=== PATIENT | male | born 1970 | race Caucasian/White ===

== ENCOUNTER 2018-09-01 14:49 | Emergency (ER) | payer OTHER ==
[2018-09-01] MEDS ORDERED: IOPAMIDOL (ISOVUE 370) 100 ML BTL IV ONE (16:01)
[2018-09-01 16:02] LABS: PLATELET COUNT 260 10^3/uL (150-400)
--- NOTE | 2018-09-01 16:13 | EDPHY ---
H & P Stated Complaint: dizzy spells over the last 4 days and 2 blackouts. Time Seen by Provider: 09/01/18 15:08 HPI/ROS: CHIEF COMPLAINT: Dizzy spells, fainting HISTORY OF PRESENT ILLNESS: This is a 48-year-old male with history of factor 5 and alcohol abuse who presents with 4 days of intermittent spells of dizziness. He describes the dizziness as a spinning sensation. He 1st noticed it when he woke up in the early Thursday morning (today is Thursday). When he stood up to get out of bed he states that he passed out and fell backwards onto the bed. He believes that he lost consciousness and does not think that he fell backwards because he was off balance. Since Thursday morning he has had intermittent episodes of spinning, lasting 10-15 seconds. They are worse with movement. On Thursday, 2 days ago, he spent the whole day in bed. Yesterday he felt better but today he is again experienced a couple of episodes of the dizziness. He states that he has had 2 previous syncopal episode. 1 was about 10 years ago when he was at a [employer]. He did not have a medical evaluation at that time but says that he woke up on the floor of the restaurant surrounded by paramedics. He had a 2nd episode about 4 years ago when he got up out of bed, when into the kitchen to get a drink, and again found himself on the floor. He broke 2 ribs at that time. He has history of factor 5 Leiden. He does not take anticoagulation. He reports left-sided neck pain that he has been experiencing on and off recently. He is not experiencing headache. He does note some numbness or an abnormal sensation around his mouth. This has been present on and off for the last few days. He has a family history of alcohol abuse with 2 brothers who of sequelae of alcohol abuse. He drinks 4 beers daily, which is a decrease for him. He is concerned about his alcohol use and believes that he drinks too much. He smokes 1 pack of cigarettes daily. He denies chest pain or shortness of breath. He has not had recent fever, cough , sore throat, URI symptoms. REVIEW OF SYSTEMS: A ten system review of systems was performed and is negative with the exception of the items mentioned in the HPI. Past medical history: 1. Factor 5 Leiden 2. Diverticulitis 3. History of alcohol abuse 4. History of tobacco abuse Family history: Positive for alcohol abuse and factor 5 Social history: He lives with his girlfriend. Alcohol and tobacco use as above. No current illicit drug use. 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 General Appearance: Alert. Vital signs reviewed. Blood pressure 123/6. Eyes: Pupils equal and round, no conjunctival injection, no discharge. Anicteric. ENT, Mouth: Mucous membranes are moist, no oropharyngeal erythema or edema. Neck: No lymphadenopathy, supple. No carotid bruits. Respiratory: Lungs are clear to auscultation; no wheezes, rales, or rhonchi. Cardiovascular: Regular rate and rhythm; no murmur, rub, or gallop. Gastrointestinal: Abdomen is soft and nontender, no masses or organomegaly, bowel sounds normal. Skin: Warm and dry, no rashes on exposed skin, normal color. Back: Nontender to palpation over the thoracolumbar spine. No CVAT. Extremities: No lower extremity edema, no calf tenderness or swelling. Neurological: Alert and oriented. Moving all four extremities easily and equally. Cranial nerves II through XII are examined and are intact (visual acuity not tested). Strength is 5 over 5 bilaterally with testing of all major motor groups. Sensation is intact to light touch over all 4 extremities. Deep tendon reflexes are 2+ in the biceps and knees bilaterally. Gait is normal. [id number] is performed accurately. Psychiatric: Normal affect. - Personal History Current Tetanus Diphtheria and Acellular Pertussis (TDAP): No - Medical/Surgical History Hx Asthma: No Hx Chronic Respiratory Disease: No Hx Diabetes: No Hx Cardiac Disease: No Hx Renal Disease: No Hx Cirrhosis: No Hx Alcoholism: No Hx HIV/AIDS: No Hx Splenectomy or Spleen Trauma: No Other PMH: Previous dizzy spells 2010. Diverticulitis. Factor V Leidan. - Social History Smoking Status: Never smoked Constitutional: Initial Vital Signs Temperature (C) 36.5 C 09/01/18 14:51 Heart Rate 65 09/01/18 14:51 Respiratory Rate 16 09/01/18 14:51 Blood Pressure 123/86 H 09/01/18 14:51 O2 Sat (%) 97 09/01/18 14:51 O2 Delivery Mode Room Air Allergies/Adverse Reactions: No Known Allergies Allergy (Unverified 09/01/18 14:55) Home Medications: Medication Instructions Recorded Meclizine HCl [Meclizine HCl 25 mg 25 mg PO TID PRN #10 tab 09/01/18 (RX,OTC)] Medical Decision Making - Diagnostics EKG Interpretation: EKG reviewed by ED physician in [facility]. ED Course/Re-evaluation: 1. 48-year-old male with history of factor 5 who presents with signs and symptoms of vertigo. I think that the dizziness that he is describing is consistent with vertigo. It is not clear to me that he has had true syncope. EKG sinus--no arrhythmia. He is not experiencing vertigo in the ED. We discussed vertigo and treatment with meclizine, should it recur. He has Factor 5 Leiden with reported neck pain and some intermittent facial numbness, raising concern for dissection. CT imaging of brain WNL. CTA of head and neck also normal. He is reassured. Danger signs reviewed. Follow up encouraged. He is given info in alcohol recovery. Differential Diagnosis: Syncope including but not limited to vasovagal syncope, arrhythmia, dehydration , and blood loss. Dizziness including but not limited to peripheral and central causes of vertigo , orthostatic causes including dehydration, and blood loss. - Data Points Laboratory Results: Laboratory Results 09/01/18 15:35 Point of Care Test Results: Chemistry 09/01/18 09/01/18 15:44 15:42 POC Sodium 143 mEq/L mEq/L (135-145) POC Potassium 4.1 mEq/L mEq/L (3.3-5.0) POC Chloride 111 mEq/L H mEq/L (97-110) POC BUN 18 mg/dL mg/dL (7-23) POC Creatinine 1.1 mg/dL mg/dL (0.7-1.3) POC Glucose 87 mg/dL mg/dL (70-100) POC Troponin I 0.00 ng/mL ng/mL (0.00-0.08) ISTAT H&H 09/01/18 15:44 POC Hgb 14.3 gm/dL gm/dL (13.7-17.5) POC Hct 42 % % (40-51) Departure - Departure Disposition: Home, Routine, Self-Care Clinical Impression: Vertigo Condition: Good Instructions: Vertigo (ED) Additional Instructions: I am giving you some information about alcoholics anonymous meetings--a phone number that you can call to find out about meetings. I am giving a prescription for meclizine to use if you have a vertigo spell. Take it only if you feel the spinning sensation. Referrals: LEXII MANRIQUEZ [Primary Care Provider] - As per Instructions AA Hotline [Outside] - As per Instructions Prescriptions: Meclizine HCl [Meclizine HCl 25 mg (RX,OTC)] 25 mg PO TID PRN #10 tab PRN Reason: vertigo
[2018-09-01 18:17] VITALS: BP 128/85
--- NOTE | 2018-09-01 23:11 | CPEKG ---
Test Reason : OPEN Blood Pressure : / mmHG Vent. Rate : 054 BPM Atrial Rate : 054 BPM P-R Int : 124 ms QRS Dur : 098 ms QT Int : 429 ms P-R-T Axes : 060 -13 035 degrees QTc Int : 407 ms Sinus rhythm Abnormal R-wave progression, early transition Confirmed by Chantal Mullen ([id number] on 09/01/2018 11:11:06 PM Referred By: Confirmed By:Chantal Mullen
== END 2018-09-01 18:17 | disposition home or self-care (01) ==
DX: R42 Dizziness and giddiness (principal); M50.322 Other cervical disc degeneration at C5-C6 level; M50.323 Other cervical disc degeneration at C6-C7 level; D68.2 Hereditary deficiency of other clotting factors
CPT/HCPCS: 82435-PO; 82565-PO; 82947-PO; 84132-PO; 84295-PO; 84484-PO; 84520-PO; 85014-PO; Q9967